=== PATIENT | female | born 1975 | race Hispanic/Latino ===

== ENCOUNTER 2019-12-28 00:42 | Emergency (ER) | payer MEDICAID ==
[2019-12-28] MEDS ORDERED: ACETAMINOPHEN 500 MG TAB PO ONE (02:54)
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
[2019-12-28 04:14] LABS: Hematocrit 38.5 % (30.3-42.9); Mean Corpuscular HGB Conc 34 % (30-34); Mean Corpuscular Volume 90 fl (79-97); Platelet Count 208 K/mm3 (140-440); Red Blood Count 4.26 M/mm3 (3.65-5.03); Red Cell Distribution Width 14.3 % (13.2-15.2)
[2019-12-28 04:22] LABS: Alanine Aminotransferase 12 units/L (7-56); Albumin 4.3 g/dL (3.9-5); BUN/Creatinine Ratio 16; Blood Urea Nitrogen 11 mg/dL (7-17); Calcium 10.1 mg/dL (8.4-10.2); Hemolysis Index 23
[2019-12-28 05:22] LABS: Anisocytosis 1+; Band Neutrophils # (Manual) 0.1 K/mm3; Platelet Estimate Consistent w Auto; Total Cells Counted 100
[2019-12-28 06:44] LABS: Bilirubin,Urine NEG (Negative); Blood,Urine NEG (Negative); Color,Urine Yellow (Yellow); Protein,Urine <15 mg/dL mg/dL (Negative); Urobilinogen,Urine < 2.0 mg/dL (<2.0)
[2019-12-28 06:50] LABS: Free T4 (Free Thyroxine) 0.71 ng/dL (0.76-1.46)
[2019-12-28 06:52] LABS: Amphetamine Screen,Urine PRESUMPTIVE NEGATIVE; Benzodiazepines Screen,Urine PRESUMPTIVE NEGATIVE; Cannabinoid Screen,Urine PRESUMPTIVE NEGATIVE; Cocaine Screen,Urine PRESUMPTIVE NEGATIVE; Methadone Screen,Urine PRESUMPTIVE NEGATIVE; Opiate Screen,Urine PRESUMPTIVE NEGATIVE
[2019-12-28 07:04] LABS: HCG Qualitative,Urine Negative (Negative)
[2019-12-28] MEDS ORDERED: ONDANSETRON 4 MG ODT TAB ONE (09:28)
[2019-12-28] MEDS ORDERED: ONDANSETRON 4 MG ODT TAB PO ONE (11:02)
[2019-12-28] MEDS ORDERED: ALPRAZolam 0.5 MG TAB PO ONE (11:02)
[2019-12-28 13:45] VITALS: BP 102/57
[2019-12-28] MEDS ORDERED: PROMETHAZINE 25 MG TAB PO ONE (15:45)
[2019-12-28] MEDS ORDERED: PROMETHAZINE 25 MG TAB ONE (15:50)
[2019-12-28] MEDS ORDERED: levETIRAcetam 500 MG TAB PO ONE (15:50)
[2019-12-28] MEDS ORDERED: levETIRAcetam 500 MG TAB PO SCH (16:00)
== END 2019-12-28 18:15 | disposition home or self-care (01) ==
LOC: EDBD → ED 00:42
DX: F41.9 Anxiety disorder, unspecified (principal); F32.9 Major depressive disorder, single episode, unspecified; E03.9 Hypothyroidism, unspecified; F17.200 Nicotine dependence, unspecified, uncomplicated; Z79.899 Other long term (current) drug therapy
CPT/HCPCS: 36415; 80053; 80164; 80307; 81001; 81025; 84439; 84443; 84703; 85007; 85025; 93005; 93010; 99284; Q0169; 80320; G0480; Q0162

== ENCOUNTER 2021-08-06 10:27 | Emergency (ER) | payer MEDICAID ==
[2021-08-06] MEDS ORDERED: ONDANSETRON 4 MG ODT TAB PO ONE (12:23)
[2021-08-06] MEDS ORDERED: oxyCODONE /ACETAMINOPHEN 5-325MG TAB PO ONE (12:23)
--- NOTE | 2021-08-06 12:26 | Emergency Department Report ---
HPI - General Chief Complaint: Abdominal Pain Time Seen by Provider: 08/06/21 12:22 - HPI HPI: 46-year-old female presents to the emergency department with a complaint of a 2-day history of left-sided and lower abdominal pain, nausea without vomiting. She denies any fever, vaginal bleeding or discharge, dysuria, back pain, chest pain. Patient says that she has a history of ovarian cysts. She has a surgical history of x2 and partial hysterectomy. She tried some ibuprofen 800 mg for her discomfort without any relief. Secondly, the patient also complains of a history of anxiety and having run out of her Ativan 1 mg pills. She thinks that she has some increased anxiety due to personal issues at home. Patient's primary care physician is a Dr. Timmons, but is located in [facility]. 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 The abdominal pain is a cramping pain and when it occurs is 9 out of 10 in intensity. ED Past Medical Hx - Past Medical History Hx Psychiatric Treatment: Yes (anxiety) - Social History Smoking Status: Current Every Day Smoker - Medications Home Medications: Home Medications Medication Instructions Recorded Confirmed Last Taken Type ALPRAZolam [Xanax TAB] 0.25 mg PO BID PRN #6 tab 12/28/19 08/06/21 08/04/21 19:00 Rx Citalopram 600 mg pe PO QDAY 12/28/19 08/06/21 08/06/21 17:24 History Divalproex ER [DepaKOTE ER] 500 mg PO BID 12/28/19 08/06/21 08/04/21 19:00 History Prazosin [Minipress] 5 mg PO DAILY 12/28/19 08/06/21 08/04/21 19:00 History busPIRone [Buspar] 10 tab PO BID 12/28/19 08/06/21 Unknown History cloNIDine [Catapres] 0.1 mg PO BID 12/28/19 08/06/21 Unknown History hydrOXYzine HCL [Atarax] 50 mg PO DAILY 12/28/19 08/06/21 Unknown History levETIRAcetam [Keppra TAB] 1,000 mg PO BID 12/28/19 08/06/21 08/06/21 07:00 History traZODone [Desyrel] 100 mg PO DAILY 12/28/19 08/06/21 Unknown History LORazepam [Ativan] 1 mg PO BID #6 tab 08/06/21 Unknown Rx SEROquel 600 mg PO DAILY 08/06/21 08/06/21 08/05/21 19:00 History ED Review of Systems ROS: Stated complaint: ABD PAIN/NAUSEA Other details as noted in HPI Comment: All other systems reviewed and negative Constitutional: denies: chills, fever Eyes: denies: eye pain, vision change ENT: denies: ear pain, throat pain Respiratory: denies: cough, shortness of breath Cardiovascular: denies: chest pain, palpitations Gastrointestinal: abdominal pain, nausea. denies: vomiting Genitourinary: denies: dysuria, discharge Musculoskeletal: denies: back pain, arthralgia Skin: denies: rash, lesions Neurological: denies: headache, weakness Psychiatric: anxiety Physical Exam - Physical Exam Vital Signs: Vital Signs 08/06/21 11:15 Temperature 99.3 F Pulse Rate 91 H Respiratory 24 Rate Blood Pressure 136/79 [Left] O2 Sat by Pulse 100 Oximetry Physical Exam: GENERAL: The patient is well-developed well-nourished. HENT: Normocephalic. Atraumatic. Patient has moist mucous membranes. EYES: Extraocular motions are intact. NECK: Supple. Trachea is midline. CHEST/LUNGS: Clear to auscultation. There is no respiratory distress noted. HEART/CARDIOVASCULAR: Regular. There is no tachycardia. There is no murmur. ABDOMEN: Abdomen is soft. There is left upper quadrant, and bilateral lower q uadrant abdominal tenderness to palpation. No guarding. Patient has normal bowel sounds. There is no abdominal distention. SKIN: Skin is warm and dry. NEURO: The patient is awake, alert, and oriented. The patient is cooperative. Normal speech. MUSCULOSKELETAL: There is no tenderness or deformity. There is no limitation range of motion. BACK: No CVA tenderness to palpation. ED Course Vital Signs 08/06/21 11:15 Temperature 99.3 F Pulse Rate 91 H Respiratory 24 Rate Blood Pressure 136/79 [Left] O2 Sat by Pulse 100 Oximetry ED Medical Decision Making - Lab Data Result diagrams: 08/06/21 12:41 08/06/21 12:41 Lab Results 08/06/21 08/06/21 08/06/21 Range/Units 12:41 12:41 16:39 WBC 4.4 L (4.5-11.0) K/mm3 RBC 4.73 (3.65-5.03) M/mm3 Hgb 14.7 H (10.1-14.3) gm/dl Hct 43.2 H (30.3-42.9) % MCV 92 (79-97) fl MCH 31 (28-32) pg MCHC 34 (30-34) % RDW 13.8 (13.2-15.2) % Plt Count 198 (140-440) K/mm3 Lymph % (Auto) 24.6 (13.4-35.0) % [place] % (Auto) 8.7 H (0.0-7.3) % Eos % (Auto) 0.3 (0.0-4.3) % Baso % (Auto) 0.1 (0.0-1.8) % Lymph # (Auto) 1.1 L (1.2-5.4) K/mm3 [place] # (Auto) 0.4 (0.0-0.8) K/mm3 Eos # (Auto) 0.0 (0.0-0.4) K/mm3 Baso # (Auto) 0.0 (0.0-0.1) K/mm3 Seg Neutrophils % 66.3 (40.0-70.0) % Seg Neutrophils # 2.9 (1.8-7.7) K/mm3 Sodium 142 (137-145) mmol/L Potassium 4.4 (3.6-5.0) mmol/L Chloride 104.2 (98-107) mmol/L Carbon Dioxide 23 (22-30) mmol/L Anion Gap 19 mmol/L BUN 11 (7-17) mg/dL Creatinine 0.9 (0.6-1.2) mg/dL Estimated GFR > 60 ml/min BUN/Creatinine Ratio 12 % Glucose 92 (65-100) mg/dL Calcium 10.6 H (8.4-10.2) mg/dL Total Bilirubin 0.30 (0.1-1.2) mg/dL Direct Bilirubin < 0.2 (0-0.2) mg/dL Indirect Bilirubin 0.1 mg/dL AST 16 (5-40) units/L ALT 18 (7-56) units/L Alkaline Phosphatase 88 (35-129) units/L Total Protein 7.8 (6.3-8.2) g/dL Albumin 5.1 H (3.9-5) g/dL Albumin/Globulin Ratio 1.9 % Lipase 36 (13-60) units/L Urine Color Yellow (Yellow) Urine Turbidity Clear (Clear) Urine pH 7.0 (5.0-7.0) Ur Specific [place] 1.010 (1.003-1.030) Urine Protein <15 mg/dl (Negative) mg/dL Urine Glucose (UA) Neg (Negative) mg/dL Urine Ketones Neg (Negative) mg/dL Urine Blood Neg (Negative) Urine Nitrite Neg (Negative) Urine Bilirubin Neg (Negative) Urine Urobilinogen < 2.0 (<2.0) mg/dL Ur Leukocyte Esterase Neg (Negative) Urine WBC (Auto) < 1.0 (0.0-6.0) /HPF Urine RBC (Auto) < 1.0 (0.0-6.0) /HPF U Epithel Cells (Auto) < 1.0 (0-13.0) /HPF Urine Mucus Few /HPF - Radiology Data Radiology results: report reviewed CT abdomen pelvis wo con INDICATION: LUQ and b/l lower abdominal pain.. COMPARISON: None TECHNIQUE: Abdominal and pelvic CT exam performed. All CT scans at this location are performed using CT dose reduction for ALARA by means of automated exposure control. FINDINGS: CT ABDOMEN and PELVIS: Lung Bases: No significant abnormality. Liver: No significant abnormality. Biliary: No significant abnormality. Spleen: No significant abnormality. Pancreas: No significant abnormality. Adrenals: No significant abnormality. Kidneys: No si gnificant abnormality. Lymphatics: No lymphadenopathy. Vasculature: No significant abnormality. Bowel: No significant abnormality. Appendix is nonvisualized. However, no inflammatory changes in the right lower quadrant to suggest appendicitis. Pelvis: Uterus is surgically absent. Osseous Structures: No aggressive osseous lesion. Additional Findings: None IMPRESSION: 1. No significant abnormality of the abdomen or pelvis. - Medical Decision Making This patient presents to the emergency department complaint of a 2-day history of abdominal sharp cramping pains. The abdomen is soft, nondistended. Labs have been unremarkable including CBC, metabolic panel, lipase, urinalysis. Patient had a CT scan of the abdomen and pelvis without contrast that does not show any acute process in the abdomen or pelvis or any etiology of the patient's discomfort. Vital signs have been reassuring throughout her ED course including being afebrile. The patient was initially given some oral analgesia. She continued to ask for more pain medication, and specifically for narcotics. I checked the [facility] prescription monitoring system and the patient has multiple prescriptions for Suboxone in the past thus showing a previous history of opiate addiction or abuse. I explained to the patient that given this history, I do not feel comfortable prescribing her narcotic pain medication. On top of that, labs and CT scan have been unremarkable. Patient has been told that she can use Tylenol and/or ibuprofen for her abdominal pain and will be given outpatient referral for gastroenterology. She does appear to have a psychiatric history, including anxiety, and says that she is out of her Ativan. The [facility] prescription monitoring system did not show any excessive prescriptions for benzodiazepine. Therefore, the patient has been given a very small dose of Ativan and has been given an outpatient referral for the [facility] for further evaluation and any future medication refills. Critical Care Time: No Critical care attestation.: If time is entered above; I have spent that time in minutes in the direct care of this critically ill patient, excluding procedure time. ED Disposition Clinical Impression: Abdominal pain, Anxiety Disposition: 01 HOME / SELF CARE / HOMELESS Is pt being admited?: No Condition: Stable Instructions: Abdominal Pain, Adult, Managing Anxiety, Adult, Abdominal Pain (ED) Additional Instructions: Please follow-up with a primary care physician in the next few days. I have given you a referral for a local primary care physician, Dr. Rosas, and a primary care clinic, [facility]. I have given you a referral for a local gastroenterology group, [facility], to follow-up regarding your abdominal pains. I have given you a referral for the [facility] to follow-up regarding your history of anxiety and your need for a medication refill. You have been prescribed a medication that is sedating and therefore should not be taken prior to driving, working, and responsible for children and in no way should be mixed with alcohol of any quantity. Return to the emergency department with any worsening of your symptoms, new or concerning symptoms not addressed during this current emergency department visit, or with any acute distress. Prescriptions: LORazepam [Ativan] 1 mg PO BID #6 tab Referrals: SEBASTIAN ROSAS MD [Staff Physician] - 3-5 Days [facility] [Provider Group] - 3-5 Days [facility] [Provider Group] - 3-5 Days [facility] [Outside] - 3-5 Days Time of Disposition: 17:04
[2021-08-06 13:21] LABS: Basophils % (Auto) 0.1 % (0.0-1.8); Eosinophils % (Auto) 0.3 % (0.0-4.3); Hematocrit 43.2 % (30.3-42.9); Hemoglobin 14.7 gm/dl (10.1-14.3); Lymphocytes # (Auto) 1.1 K/mm3 (1.2-5.4); Lymphocytes % (Auto) 24.6 % (13.4-35.0); Mean Corpuscular HGB Conc 34 % (30-34); Mean Corpuscular Volume 92 fl (79-97); Monocytes # (Auto) 0.4 K/mm3 (0.0-0.8); Monocytes % (Auto) 8.7 % (0.0-7.3); Platelet Count 198 K/mm3 (140-440); Red Blood Count 4.73 M/mm3 (3.65-5.03); Red Cell Distribution Width 13.8 % (13.2-15.2)
[2021-08-06 13:46] LABS: Alanine Aminotransferase 18 units/L (7-56); Albumin 5.1 g/dL (3.9-5); BUN/Creatinine Ratio 12; Blood Urea Nitrogen 11 mg/dL (7-17); Calcium 10.6 mg/dL (8.4-10.2); Hemolysis Index 12
[2021-08-06 13:53] LABS: Bilirubin,Direct < 0.2 mg/dL (0-0.2)
--- NOTE | 2021-08-06 14:28 | Cat Scan Report ---
CT abdomen pelvis wo con INDICATION: LUQ and b/l lower abdominal pain.. COMPARISON: None TECHNIQUE: Abdominal and pelvic CT exam performed. All CT scans at this location are performed using CT dose reduction for ALARA by means of automated exposure control. FINDINGS: CT ABDOMEN and PELVIS: Lung Bases: No significant abnormality. Liver: No significant abnormality. Biliary: No significant abnormality. Spleen: No significant abnormality. Pancreas: No significant abnormality. Adrenals: No significant abnormality. Kidneys: No significant abnormality. Lymphatics: No lymphadenopathy. Vasculature: No significant abnormality. Bowel: No significant abnormality. Appendix is nonvisualized. However, no inflammatory changes in th e right lower quadrant to suggest appendicitis. Pelvis: Uterus is surgically absent. Osseous Structures: No aggressive osseous lesion. Additional Findings: None IMPRESSION: 1. No significant abnormality of the abdomen or pelvis. Signer Name: Ahsan Little MD Signed: 08/06/2021 2:23 PM Workstation Name: [id number]
[2021-08-06] MEDS ORDERED: DICYCLOMINE 20 MG TAB PO ONE (15:58)
[2021-08-06 16:52] LABS: Bilirubin,Urine NEG (Negative); Blood,Urine NEG (Negative); Color,Urine Yellow (Yellow); Mucus,Urine FEW /HPF; Protein,Urine <15 mg/dL mg/dL (Negative); RBC,Urine < 1.0 /HPF (0.0-6.0); Urobilinogen,Urine < 2.0 mg/dL (<2.0); WBC,Urine < 1.0 /HPF (0.0-6.0)
[2021-08-06 17:38] VITALS: BP 138/94
== END 2021-08-06 17:06 | disposition home or self-care (01) ==
LOC: ED 10:27
DX: R10.32 Left lower quadrant pain (principal); F41.9 Anxiety disorder, unspecified; F17.200 Nicotine dependence, unspecified, uncomplicated
CPT/HCPCS: 36415; 74176; 80048; 80076; 81001; 83690; 85025; 99284; Q0162

== ENCOUNTER 2021-08-22 02:39 | Emergency (ER) | payer MEDICAID ==
[2021-08-22] MEDS ORDERED: ONDANSETRON 4 MG/2 ML INJ IV ONE (03:13)
[2021-08-22] MEDS ORDERED: SODIUM CHLORIDE 0.9% 1000 ML 1,000 ML IV ONE (03:16)
--- NOTE | 2021-08-22 03:25 | Emergency Department Report ---
History of Present Illness - General Chief Complaint: Overdose Stated Complaint: POSSIBLE OD Time Seen by Provider: 08/22/21 03:22 Source: patient, EMS Mode of arrival: Stretcher Limitations: No Limitations, Altered Mental Status - History of Present Illness Initial Comments: Patient is a 46-year-old female who presents emergency room for overdose. Pat ient states was accidental. Patient denies suicidal and homicidal ideations. Patient states she has overdosed in the past. Patient states she was using heroin. Patient states he has used many times. Patient denies pain. Patient complains of nausea vomiting. Patient states when she gets Narcan she gets nauseous. Patient denies chest pain. Patient denies headache. Patient denies blurry vis ion. Patient denies shortness of breath. Report received from EMS. Patient brought in by EMS. EMS states the patient was found unresponsive and hypoxic and bradycardic. Patient was given Narcan a nd the patient became alert and oriented. Patient's vital signs and oxygenation improved. Patient denies recent travel. Patient denies recent international travel. Patient denies exposure to the novel coronavirus. Patient denies sick contacts. Patient denies fever and chills. Patient denies cough. Patient denies diarrhea. Patient denies coming in contact with anybody with symptoms of the novel coronavirus. Complaint: accidental overdose -: Sudden How Overdose Was Discovered: called family/friend Context: Accidental Overdose: wanted to get high Treatments Prior to Arrival: oxygen, narcan, IV fluids - Related Data Home Medications Medication Instructions Recorded Confirmed Last Taken Citalopram 600 mg pe PO QDAY 12/28/19 08/06/21 08/06/21 17:24 Divalproex ER [DepaKOTE ER] 500 mg PO BID 12/28/19 08/06/21 08/04/21 19:00 Prazosin [Minipress] 5 mg PO DAILY 12/28/19 08/06/21 08/04/21 19:00 busPIRone [Buspar] 10 tab PO BID 12/28/19 08/06/21 Unknown cloNIDine [Catapres] 0.1 mg PO BID 12/28/19 08/06/21 Unknown hydrOXYzine HCL [Atarax] 50 mg PO DAILY 12/28/19 08/06/21 Unknown levETIRAcetam [Keppra TAB] 1,000 mg PO BID 12/28/19 08/06/21 08/06/21 07:00 traZODone [Desyrel] 100 mg PO DAILY 12/28/19 08/06/21 Unknown SEROquel 600 mg PO DAILY 08/06/21 08/06/21 08/05/21 19:00 Previous Rx's Medication Instructions Recorded Last Taken Type ALPRAZolam [Xanax TAB] 0.25 mg PO BID PRN #6 tab 12/28/19 08/04/21 19:00 Rx LORazepam [Ativan] 1 mg PO BID #6 tab 08/06/21 Unknown Rx Ondansetron [Zofran Odt] 4 mg PO Q6HR PRN #15 tab.rapdis 08/22/21 Unknown Rx Allergies Allergy/AdvReac Type Severity Reaction Status Date / Time No Known Allergies Allergy Verified 08/06/21 11:15 ED Review of Systems ROS: Stated complaint: POSSIBLE OD Other details as noted in HPI Constitutional: denies: chills, fever Eyes: denies: eye pain, eye discharge, vision change ENT: denies: ear pain, throat pain Respiratory: denies: cough, shortness of breath, wheezing Cardiovascular: denies: chest pain, palpitations Endocrine: no symptoms reported Gastrointestinal: nausea, vomiting. denies: abdominal pain, diarrhea Genitourinary: denies: urgency, dysuria, discharge Musculoskeletal: denies: back pain, joint swelling, arthralgia Skin: denies: rash, lesions Neurological: denies: headache, weakness, paresthesias Psychiatric: denies: anxiety, depression Hematological/Lymphatic: denies: easy bleeding, easy bruising ED Past Medical Hx - Past Medical History Previous Medical History?: Yes Hx Psychiatric Treatment: Yes (anxiety) - Surgical History Past Surgical History?: No - Family History Family history: no significant - Social History Smoking Status: Current Every Day Smoker Substance Use Type: Heroin - Medications Home Medications: Home Medications Medication Instructions Recorded Confirmed Last Taken Type ALPRAZolam [Xanax TAB] 0.25 mg PO BID PRN #6 tab 12/28/19 08/06/21 08/04/21 19:00 Rx Citalopram 600 mg pe PO QDAY 12/28/19 08/06/21 08/06/21 17:24 History Divalproex ER [DepaKOTE ER] 500 mg PO BID 12/28/19 08/06/21 08/04/21 19:00 History Prazosin [Minipress] 5 mg PO DAILY 12/28/19 08/06/21 08/04/21 19:00 History busPIRone [Buspar] 10 tab PO BID 12/28/19 08/06/21 Unknown History cloNIDine [Catapres] 0.1 mg PO BID 12/28/19 08/06/21 Unknown History hydrOXYzine HCL [Atarax] 50 mg PO DAILY 12/28/19 08/06/21 Unknown History levETIRAcetam [Keppra TAB] 1,000 mg PO BID 12/28/19 08/06/21 08/06/21 07:00 History traZODone [Desyrel] 100 mg PO DAILY 12/28/19 08/06/21 Unknown History LORazepam [Ativan] 1 mg PO BID #6 tab 08/06/21 Unknown Rx SEROquel 600 mg PO DAILY 08/06/21 08/06/21 08/05/21 19:00 History Ondansetron [Zofran Odt] 4 mg PO Q6HR PRN #15 tab.rapdis 08/22/21 Unknown Rx ED Physical Exam - General Limitations: No Limitations General appearance: alert, in no apparent distress - Head Head exam: Present: atraumatic, normocephalic - Eye Eye exam: Present: normal appearance - ENT ENT exam: Present: mucous membranes moist - Neck Neck exam: Present: normal inspection - Respiratory Respiratory exam: Present: normal lung sounds bilaterally. Absent: respiratory distress - Cardiovascular Cardiovascular Exam: Present: regular rate, normal rhythm. Absent: systolic murmur, diastolic murmur, rubs, gallop - GI/Abdominal GI/Abdominal exam: Present: soft, normal bowel sounds - Extremities Exam Extremities exam: Present: normal inspection - Back Exam Back exam: Present: normal inspection - Neurological Exam Neurological exam: Present: alert, oriented X3 - Psychiatric Psychiatric exam: Present: normal affect, normal mood - Skin Skin exam: Present: warm, dry, intact, normal color. Absent: rash ED Course Vital Signs 08/22/21 08/22/21 08/22/21 02:51 03:01 03:03 Pulse Rate 90 93 H Respiratory 12 20 Rate Blood Pressure 109/62 Blood Pressure 109/62 [Right] O2 Sat by Pulse 97 94 98 Oximetry 08/22/21 08/22/21 08/22/21 03:15 03:31 03:45 Pulse Rate 98 H 92 H 92 H Respiratory 12 8 L 7 L Rate Blood Pressure 109/62 109/62 109/62 Blood Pressure [Right] O2 Sat by Pulse 98 92 89 Oximetry 08/22/21 08/22/21 04:01 04:08 Pulse Rate 94 H Respiratory 6 L 20 Rate Blood Pressure 109/62 Blood Pressure [Right] O2 Sat by Pulse 88 94 Oximetry - Reevaluation(s) Reevaluation #1: Patient's nausea has resolved. Patient states she is feeling better. Patient states she still feels little bit tired. 08/22/21 04:19 Reevaluation #2: Patient resting comfortably. Patient is easily arousable. Patient's vital signs are stable and reassuring. Patient states she has clonidine at home. I discussed all results and clinical findings with patient. I discussed plan of care with patient. Patient agrees with plan of care. Patient is stable for discharge. Patient will be discharged home. Patient given discharge instructions. Patient voiced understanding of discharge instructions. 08/22/21 05:20 ED Medical Decision Making - Lab Data Result diagrams: 08/22/21 03:22 08/22/21 03:22 - Medical Decision Making Patient is a 46-year-old female who presents emergency room with complaints of overdose. Patient brought in by EMS. Patient vomiting is to be unresponsive with severe hypoxia. Patient was given Narcan and the patient responded well. Patient became more responsive and alert. Patient's vital signs oxygen improved after Narcan. During initial valuation, the patient became nauseated and vomited. Patient given Zofran. Patient given IV fluids. Patient labs done. Patient's labs were essentially unremarkable except for mild renal insufficiency. Patient given IV fluids. Patient monitored for adequate amount of time in the ER to allow the patient to sober up. Patient does not require further emergency medical service. Patient not require further inpatient service. Patient stable for discharge. Patient encouraged to not use drugs anymore. Patient encouraged to go to a drug rehab. I discussed all results and clinical findings with patient. I discussed plan of care with patient. Patient agrees with plan of care. Patient is stable for discharge. Patient will be discharged home. Patient given discharge instructions. Patient voiced understanding of discharge instructions. Critical care time documented due to the multiple reassessments, prolonged time at the bedside, interpretation of diagnostics and labs. - Differential Diagnosis Accidental overdose, heroin abuse Critical Care Time: Yes Critical care time in (mins) excluding proc time.: 35 Critical care attestation.: If time is entered above; I have spent that time in minutes in the direct care o f this critically ill patient, excluding procedure time. Critical Care Time: 35 minutes ED Disposition Clinical Impression: Heroin abuse, Mild renal insufficiency, Dehydration Accidental overdose Qualifiers: Encounter type: initial encounter Qualified Code(s): T50.901A - Poisoning by unspecified drugs, medicaments and biological substances, accidental (unintentional), initial encounter Nausea & vomiting Qualifiers: Vomiting type: unspecified Vomiting Intractability: non-intractable Qualified Code(s): R11.2 - Nausea with vomiting, unspecified Disposition: HOME / SELF CARE / HOMELESS Is pt being admited?: No Does the pt Need Aspirin: No Condition: Stable Instructions: Accidental Drug Poisoning, Adult, Preventing Poisoning, Adult, Warning Signs of Opioid Misuse, Opioid Use Disorder Additional Instructions: Patient to follow-up with primary care in 2 to 3 days. Patient to follow-up w [facility] as soon as possible. Patient to contact one of the rehab facilities on the resource page. Patient to rest. Patient to increase water. Patient to avoid drug use. Patient to avoid alcohol use. Patient to take Tylenol as needed for pain. Patient to take meds as directed. Patient to return to the ER if condition worsens, changes or new symptoms arise. Prescriptions: Ondansetron [Zofran Odt] 4 mg PO Q6HR PRN #15 tab.rapdis PRN Reason: Nausea And Vomiting Referrals: PRIMARY CARE, [Primary Care Provider] - 2-3 Days Time of Disposition: 05:27
[2021-08-22 03:34] LABS: Eosinophils % (Auto) 0.3 % (0.0-4.3); Hematocrit 41.2 % (30.3-42.9); Hemoglobin 14.2 gm/dl (10.1-14.3); Lymphocytes # (Auto) 1.4 K/mm3 (1.2-5.4); Lymphocytes % (Auto) 10.4 % (13.4-35.0); Mean Corpuscular HGB Conc 34 % (30-34); Mean Corpuscular Volume 91 fl (79-97); Monocytes # (Auto) 1.4 K/mm3 (0.0-0.8); Monocytes % (Auto) 10.4 % (0.0-7.3); Platelet Count 245 K/mm3 (140-440); Red Blood Count 4.52 M/mm3 (3.65-5.03); Red Cell Distribution Width 13.6 % (13.2-15.2)
[2021-08-22 03:53] LABS: Calcium 9.5 mg/dL (8.4-10.2)
[2021-08-22 07:30] VITALS: BP 118/60
== END 2021-08-22 07:51 | disposition home or self-care (01) ==
LOC: ED 02:39
DX: T40.1X1A Poisoning by heroin, accidental (unintentional), initial encounter (principal); R09.02 Hypoxemia; N28.9 Disorder of kidney and ureter, unspecified; E86.0 Dehydration; R11.2 Nausea with vomiting, unspecified; F17.200 Nicotine dependence, unspecified, uncomplicated; Y92.89 Other specified places as the place of occurrence of the external cause
CPT/HCPCS: 36415; 80048; 84703; 85025; 96361; 96374; 99291; J2405; J7030; 80320; G0480

== ENCOUNTER 2022-06-11 16:40 | Emergency (ER) | payer MEDICAID | END 2022-06-11 18:36 | disposition left against medical advice (07) | LOC: ED 16:40 | DX: R51.9 Headache, unspecified (principal); Z53.21 Procedure and treatment not carried out due to patient leaving prior to being seen by health care provider ==

== ENCOUNTER 2022-06-12 09:49 | Emergency (ER) | payer MEDICAID ==
[2022-06-12 13:45] LABS: Basophils % (Auto) 0.3 % (0.0-1.8); Eosinophils % (Auto) 0.2 % (0.0-4.3); Hemoglobin 14.3 gm/dl (10.1-14.3); Lymphocytes # (Auto) 1.6 K/mm3 (1.2-5.4); Lymphocytes % (Auto) 36.8 % (13.4-35.0); Mean Corpuscular HGB Conc 34 % (30-34); Mean Corpuscular Volume 92 fl (79-97); Monocytes # (Auto) 0.4 K/mm3 (0.0-0.8); Monocytes % (Auto) 10.1 % (0.0-7.3); Platelet Count 298 K/mm3 (140-440); Red Blood Count 4.58 M/mm3 (3.65-5.03); Red Cell Distribution Width 13.4 % (13.2-15.2)
[2022-06-12 14:02] LABS: Alanine Aminotransferase 49 units/L (7-56); Albumin 4.8 g/dL (3.9-5); BUN/Creatinine Ratio 9; Blood Urea Nitrogen 7 mg/dL (7-17); Calcium 9.8 mg/dL (8.4-10.2); Hemolysis Index 5
[2022-06-12] MEDS ORDERED: ALUM-MAG HYDROXIDE-SIMETHICONE 200-200-20MG/5ML ORAL LIQD 30 ML PO ONE (14:33)
[2022-06-12] MEDS ORDERED: DICYCLOMINE 10 MG/5 ML ORAL LIQD PO ONE (14:33)
[2022-06-12] MEDS ORDERED: LIDOCAINE VISCOUS 2% 15 ML ORAL LIQD PO ONE (14:33)
[2022-06-12 17:12] LABS: Bilirubin,Urine Negative (Negative); Color,Urine Straw (Yellow); Protein,Urine <15 mg/dL mg/dL (Negative); WBC,Urine < 1.0 /HPF (0.0-6.0)
[2022-06-12] MEDS ORDERED: KETOROLAC 10 MG TAB PO ONE (17:33)
--- NOTE | 2022-06-12 17:35 | Emergency Department Report ---
ED Abdominal Pain HPI - General Chief Complaint: Abdominal Pain Stated Complaint: NAUSEA/HAND PAIN Time Seen by Provider: 06/12/22 14:06 Source: patient Mode of arrival: Ambulatory Limitations: No Limitations - History of Present Illness Initial Comments: 47-year-old white female with a past medical history of seizures presents to the emergency department for evaluation of 3-week history of epigastric pain. She states that pain is intermittent, a burning type feeling, and 8 out of 10 at its worst. She states that she has also had some dysuria along with nausea and vomiting but denies fever, diarrhea, and vaginal discharge MD Complaint: abdominal pain -: Gradual, week(s) (3) Location: epigastric Radiation: none Migration to: no migration Severity: severe Severity scale (0 -10): 10 Quality: burning Consistency: constant Associated Symptoms: nausea, vomiting, dysuria. denies: diarrhea, fever, chills, hematemesis, hematochezia, melena, hematuria, anorexia, syncope - Related Data LMP (females 10-50): other (States that she is in menopause and has not had a period in many months) Home Medications Medication Instructions Recorded Confirmed Last Taken Citalopram 600 mg pe PO QDAY 12/28/19 08/06/21 08/06/21 17:24 Divalproex ER [DepaKOTE ER] 500 mg PO BID 12/28/19 08/06/21 08/04/21 19:00 Prazosin [Minipress] 5 mg PO DAILY 12/28/19 08/06/21 08/04/21 19:00 busPIRone [Buspar] 10 tab PO BID 12/28/19 08/06/21 Unknown cloNIDine [Catapres] 0.1 mg PO BID 12/28/19 08/06/21 Unknown hydrOXYzine HCL [Atarax] 50 mg PO DAILY 12/28/19 08/06/21 Unknown levETIRAcetam [Keppra TAB] 1,000 mg PO BID 12/28/19 08/06/21 08/06/21 07:00 traZODone [Desyrel] 100 mg PO DAILY 12/28/19 08/06/21 Unknown SEROquel 600 mg PO DAILY 08/06/21 08/06/21 08/05/21 19:00 Previous Rx's Medication Instructions Recorded Last Taken Type ALPRAZolam [Xanax TAB] 0.25 mg PO BID PRN #6 tab 12/28/19 08/04/21 19:00 Rx LORazepam [Ativan] 1 mg PO BID #6 tab 08/06/21 Unknown Rx Ondansetron [Zofran Odt] 4 mg PO Q6HR PRN #15 tab.rapdis 08/22/21 Unknown Rx Allergies Allergy/AdvReac Type Severity Reaction Status Date / Time No Known Allergies Allergy Verified 06/12/22 10:01 ED Review of Systems ROS: Stated complaint: NAUSEA/HAND PAIN Other details as noted in HPI Comment: All other systems reviewed and negative Constitutional: denies: chills, fever, malaise, weakness Eyes: denies: vision change ENT: denies: congestion Respiratory: denies: shortness of breath Cardiovascular: denies: chest pain, palpitations Gastrointestinal: abdominal pain, nausea, vomiting. denies: diarrhea, hematemesis, melena, hematochezia Genitourinary: dysuria. denies: urgency, frequency, hematuria, discharge Musculoskeletal: denies: back pain Skin: denies: rash, lesions Neurological: denies: headache, weakness, numbness, paresthesias, confusion, abnormal gait, vertigo ED Past Medical Hx - Past Medical History Previous Medical History?: No Hx Psychiatric Treatment: Yes (anxiety) - Social History Smoking Status: Current Every Day Smoker Substance Use Type: Heroin - Medications Home Medications: Home Medications Medication Instructions Recorded Confirmed Last Taken Type ALPRAZolam [Xanax TAB] 0.25 mg PO BID PRN #6 tab 12/28/19 08/06/21 08/04/21 19:00 Rx Citalopram 600 mg pe PO QDAY 12/28/19 08/06/21 08/06/21 17:24 History Divalproex ER [DepaKOTE ER] 500 mg PO BID 12/28/19 08/06/21 08/04/21 19:00 History Prazosin [Minipress] 5 mg PO DAILY 12/28/19 08/06/21 08/04/21 19:00 History busPIRone [Buspar] 10 tab PO BID 12/28/19 08/06/21 Unknown History cloNIDine [Catapres] 0.1 mg PO BID 12/28/19 08/06/21 Unknown History hydrOXYzine HCL [Atarax] 50 mg PO DAILY 12/28/19 08/06/21 Unknown History levETIRAcetam [Keppra TAB] 1,000 mg PO BID 12/28/19 08/06/21 08/06/21 07:00 History traZODone [Desyrel] 100 mg PO DAILY 12/28/19 08/06/21 Unknown History LORazepam [Ativan] 1 mg PO BID #6 tab 08/06/21 Unknown Rx SEROquel 600 mg PO DAILY 08/06/21 08/06/21 08/05/21 19:00 History Ondansetron [Zofran Odt] 4 mg PO Q6HR PRN #15 tab.rapdis 08/22/21 Unknown Rx ED Physical Exam - General Limitations: No Limitations General appearance: alert, in no apparent distress - Head Head exam: Present: atraumatic, normocephalic - Eye Eye exam: Present: normal appearance. Absent: conjunctival injection, periorbital swelling, periorbital tenderness - Neck Neck exam: Present: normal inspection, full ROM. Absent: tenderness, lymphadenopathy - Respiratory Respiratory exam: Present: normal lung sounds bilaterally. Absent: respiratory distress, wheezes, rales, rhonchi, stridor, chest wall tenderness - Cardiovascular Cardiovascular Exam: Present: regular rate, normal heart sounds - GI/Abdominal GI/Abdominal exam: Present: soft, normal bowel sounds. Absent: distended, tenderness, guarding, rebound, rigid - Extremities Exam Extremities exam: Present: normal inspection, normal capillary refill. Absent: tenderness, pedal edema, joint swelling - Back Exam Back exam: Present: normal inspection. Absent: CVA tenderness (R), CVA tenderness (L), vertebral tenderness - Neurological Exam Neurological exam: Present: alert, oriented X3, normal gait - Psychiatric Psychiatric exam: Present: normal affect, normal mood - Skin Skin exam: Present: warm, dry, intact, normal color ED Course Vital Signs 06/12/22 06/12/22 06/12/22 10:00 18:04 18:11 Temperature 98.4 F 98.9 F Pulse Rate 99 H 82 Respiratory 18 16 14 Rate Blood Pressure 143/82 136/92 [Left] O2 Sat by Pulse 99 100 Oximetry ED Medical Decision Making - Lab Data Result diagrams: 06/12/22 12:56 06/12/22 12:56 - Medical Decision Making 47-year-old white female with a past medical history of seizures presents to the emergency department for evaluation of 3-week history of epigastric pain. She states that pain is intermittent, a burning type feeling, and 8 out of 10 at its worst. She states that she has also had some dysuria along with nausea and vomiting but denies fever, diarrhea, and vaginal discharge Physical exam unremarkable. Labs and urine without any gross abnormalities noted. 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 She is advised to return to the emergency department as needed. Patient requesting prescription for Ativan or Percocet or Suboxone. Patient was notified that she should follow-up with her pain management doctor for those prescriptions. Critical care attestation.: If time is entered above; I have spent that time in minutes in the direct care of this critically ill patient, excluding procedure time. ED Disposition Clinical Impression: Abdominal pain Qualifiers: Abdominal location: epigastric Qualified Code(s): R10.13 - Epigastric pain Disposition: 01 HOME / SELF CARE / HOMELESS Is pt being admited?: No Does the pt Need Aspirin: No Condition: Stable Instructions: Abdominal Pain, Adult, [id number], Abdominal Pain (ED) Additional Instructions: Follow-up with primary care provider or stomach doctor for further evaluation and management. Return to the emergency department as needed. Referrals: SEBASTIAN REYNOLDS MD [Staff Physician] - 3-5 Days ANTOINETTE MCGRATH MD [Staff Physician] - 3-5 Days Time of Disposition: 17:35
[2022-06-12 18:05] VITALS: BP 136/92
== END 2022-06-12 18:23 | disposition home or self-care (01) ==
LOC: ED 09:49
DX: R10.13 Epigastric pain (principal); F41.9 Anxiety disorder, unspecified; F17.200 Nicotine dependence, unspecified, uncomplicated; Z79.899 Other long term (current) drug therapy
CPT/HCPCS: 36415; 80053; 81001; 83690; 85025; 99283